=== PATIENT | female | born 2000 | race Caucasian/White ===

== ENCOUNTER 2021-07-13 21:54 | Inpatient (IN) | payer MEDICAID ==
[~2021-07-13] VITALS: Ht 165.1 cm; Wt 85.9 kg
[2021-07-14 05:41] LABS: COVID AG,FIA SOURCE NASAL SWAB
[2021-07-14] MEDS ORDERED: LORazepam 2 MG/ML VIAL IM ONE (09:15)
[2021-07-14] MEDS ORDERED: HALOPERIDOL LACTATE 5 MG/ML VIAL IM ONE (09:15)
[2021-07-14] MEDS ORDERED: DiphenhydrAMINE HCL 50 MG/ML VIAL IM ONE (09:15)
[2021-07-14 09:33] VITALS: BP 111/62
[2021-07-14] MEDS ORDERED: MAGNESIUM HYDROXIDE SUSPENSION 30 ML UDCUP PO PRN (10:00)
[2021-07-14] MEDS ORDERED: ACETAMINOPHEN 325 MG TABLET PO PRN (10:00)
[2021-07-14] MEDS ORDERED: CloNIDine HCL 0.1 MG TABLET PO PRN (10:00)
[2021-07-14] MEDS ORDERED: BACITRACIN 28 GM OINTMENT TP PRN (10:00)
[2021-07-14] MEDS ORDERED: ALBUTEROL SULFATE HFA 90 MCG/PUFF 8 GM INHALER IH PRN (10:00)
[2021-07-14] MEDS ORDERED: BENZOCAINE/MENTHOL LOZENGE PO PRN (10:00)
[2021-07-14] MEDS ORDERED: IBUPROFEN 600 MG TABLET PO PRN (10:00)
[2021-07-14] MEDS ORDERED: PETROLATUM,WHITE 28 GM JELLY TP PRN (10:00)
[2021-07-14] MEDS ORDERED: OMEPRAZOLE 20 MG CAPSULE PO PRN (10:00)
[2021-07-14] MEDS ORDERED: DOCUSATE SODIUM 100 MG CAPSULE PO PRN (10:00)
[2021-07-14] MEDS ORDERED: ONDANSETRON HCL 4 MG TABLET PO PRN (10:00)
[2021-07-14] MEDS ORDERED: LOPERAMIDE HCL 2 MG CAPSULE PO PRN (10:00)
[2021-07-14] MEDS ORDERED: MAG HYDROX/AL HYDROX/SIMETH ES 30 ML SUSPENSION UDCUP PO PRN (10:00)
[2021-07-14] MEDS ORDERED: INFLUENZA VIRUS VACCINE QVS 2021-22 (6MO+)/PF 60 MCG/0.5 ML SYRINGE IM. ONE (10:30)
[2021-07-14 16:01] VITALS: BP 118/73
[2021-07-14] MEDS: BACITRACIN 28 GM OINTMENT TP SCH (16:19)
[2021-07-15 05:29] VITALS: BP 116/70
[2021-07-15] MEDS: BACITRACIN 28 GM OINTMENT TP SCH ×2 (08:43→16:20)
[2021-07-16] MEDS: RisperiDONE 1 MG TABLET PO SCH ×2 (08:03→16:32)
[2021-07-16 08:04] VITALS: BP 119/82
[2021-07-16] MEDS: BACITRACIN 28 GM OINTMENT TP SCH ×2 (08:07→16:39)
[2021-07-16] MEDS: LORazepam 2 MG TABLET PO PRN (08:08)
[2021-07-17 00:49] VITALS: BP 138/90
[2021-07-17 08:09] VITALS: BP 114/72
[2021-07-17] MEDS: RisperiDONE 2 MG TABLET PO SCH ×2 (08:28→16:12)
[2021-07-17] MEDS: BACITRACIN 28 GM OINTMENT TP SCH ×2 (08:28→16:12)
[2021-07-17] MEDS: LORazepam 2 MG TABLET PO PRN (09:29)
[2021-07-17] MEDS: HALOPERIDOL 5 MG TABLET PO PRN (09:39)
[2021-07-18 01:17] VITALS: BP 118/76
[2021-07-18 07:32] LABS: BASOPHILS % (AUTO) 0.6 % (0.0-2.0); EOSINOPHILS % (AUTO) 1.3 % (1.0-6.0); HEMATOCRIT 36.8 % (36-46); HEMOGLOBIN 12.2 g/dL (12.0-16.0); LYMPHOCYTES # (AUTO) 2.5 K/uL (1.0-4.8); MEAN CORPUSCULAR HEMOGLOBIN 27.1 pg (26.0-34.0); MEAN CORPUSCULAR HGB CONC 33.1 G/dL (31.0-37.0); MEAN CORPUSCULAR VOLUME 82 fL (80-100); MONOCYTES # (AUTO) 0.4 K/uL (0.1-1.0); NEUTROPHILS # (AUTO) 2.9 K/uL (1.8-7.7); NEUTROPHILS % (AUTO) 49.1 % (40.0-70.0); PLATELET COUNT (AUTO) 240 K/uL (150-450); RED BLOOD CELL COUNT(AUTO) 4.49 MIL/uL (4.00-5.20); RED CELL DISTRIBUTION WIDTH 14.4 % (11.5-14.5)
[2021-07-18 08:28] VITALS: BP 118/76
[2021-07-18] MEDS: RisperiDONE 2 MG TABLET PO SCH ×2 (08:38→16:11)
[2021-07-18] MEDS: LORazepam 2 MG TABLET PO PRN (08:38)
[2021-07-18] MEDS: BACITRACIN 28 GM OINTMENT TP SCH ×2 (09:21→16:12)
[2021-07-18] MEDS: HALOPERIDOL 5 MG TABLET PO PRN (09:30)
[2021-07-18 09:43] LABS: ALANINE AMINOTRANSFERASE 19 U/L (12-78); ALBUMIN 3.1 g/dL (3.4-5.0); ALKALINE PHOSPHATASE 109 U/L (46-116); ANION GAP 8 mmol/L (8-16); ASPARTATE AMINOTRANSFERASE 8 U/L (15-37); BILIRUBIN,TOTAL 0.3 mg/dL (0.1-1.0); CALCIUM, TOTAL 8.7 mg/dL (8.8-10.5); CARBON DIOXIDE 26 mmol/L (22-29); CHLORIDE 103 mmol/L (98-107); CREATININE 0.64 mg/dL (0.60-1.30); GLOMERULAR FILTR. RATE CALC > 60 mL/min (>60); GLUCOSE,RANDOM 94 mg/dL (70-110); HCG,QUANTITATIVE < 1 mIU/mL (0-6); POTASSIUM 3.9 mmol/L (3.5-5.1); SODIUM SERUM 137 mmol/L (136-145); TOTAL PROTEIN, SERUM 7.1 g/dL (6.4-8.2); UREA NITROGEN, BLOOD 15 mg/dL (7-18)
[2021-07-18 16:11] VITALS: BP 130/77
[2021-07-19 06:25] VITALS: BP 124/82
[2021-07-19] MEDS: RisperiDONE 2 MG TABLET PO SCH ×2 (08:10→16:00)
[2021-07-19] MEDS: BACITRACIN 28 GM OINTMENT TP SCH ×2 (08:10→16:00)
[2021-07-19] MEDS: LORazepam 2 MG TABLET PO PRN (08:10)
[2021-07-19 08:21] VITALS: BP 116/62
[2021-07-19 16:12] VITALS: BP 144/69
[2021-07-20 02:04] VITALS: BP 138/70
[2021-07-20] MEDS: ZOLPIDEM TARTRATE 10 MG TABLET PO PRN (03:00)
[2021-07-20 08:20] VITALS: BP 122/66
[2021-07-20] MEDS: BACITRACIN 28 GM OINTMENT TP SCH ×2 (08:44→16:47)
[2021-07-20] MEDS: RisperiDONE 2 MG TABLET PO SCH ×2 (08:44→16:47)
[2021-07-20] MEDS: MULTIVITAMINS WITH MINERALS, THERAPEUTIC TABLET PO SCH (08:44)
[2021-07-20] MEDS: LORazepam 2 MG TABLET PO PRN (08:44)
[2021-07-20 16:18] VITALS: BP 112/61
[2021-07-21 04:28] VITALS: BP 133/76
[2021-07-21 08:13] VITALS: BP 118/84
[2021-07-21] MEDS: RisperiDONE 2 MG TABLET PO SCH ×2 (08:16→16:38)
[2021-07-21] MEDS: BACITRACIN 28 GM OINTMENT TP SCH ×2 (08:16→16:37)
[2021-07-21] MEDS: LORazepam 2 MG TABLET PO PRN ×2 (08:17→14:21)
[2021-07-21] MEDS: MULTIVITAMINS WITH MINERALS, THERAPEUTIC TABLET PO SCH (08:17)
[2021-07-21] MEDS: HALOPERIDOL 5 MG TABLET PO PRN (08:30)
[2021-07-21 16:14] VITALS: BP 104/69
[2021-07-21] MEDS: LACTULOSE 20 GM/30 ML SOLUTION UDCUP PO SCH (23:51)
[2021-07-22 05:22] VITALS: BP 115/76
[2021-07-22] MEDS: LACTULOSE 20 GM/30 ML SOLUTION UDCUP PO SCH ×3 (08:00→16:14)
[2021-07-22 08:09] VITALS: BP 109/69
[2021-07-22] MEDS: MULTIVITAMINS WITH MINERALS, THERAPEUTIC TABLET PO SCH (08:10)
[2021-07-22] MEDS: RisperiDONE 2 MG TABLET PO SCH ×2 (08:10→16:14)
[2021-07-22] MEDS: BACITRACIN 28 GM OINTMENT TP SCH ×3 (08:10→16:14)
[2021-07-22 08:56] LABS: GLUCOMETER DEV NAME(LOC) POC.BV
[2021-07-22] MEDS: HALOPERIDOL 5 MG TABLET PO PRN ×2 (09:57→16:14)
[2021-07-22] MEDS: LORazepam 2 MG TABLET PO PRN ×2 (09:57→14:00)
[2021-07-22 16:08] VITALS: BP 102/61
[2021-07-23 04:30] VITALS: BP 123/78
[2021-07-23] MEDS: LACTULOSE 20 GM/30 ML SOLUTION UDCUP PO SCH ×4 (08:00→16:00)
[2021-07-23] MEDS: MULTIVITAMINS WITH MINERALS, THERAPEUTIC TABLET PO SCH (08:27)
[2021-07-23] MEDS: BACITRACIN 28 GM OINTMENT TP SCH ×2 (08:28→16:01)
[2021-07-23] MEDS: RisperiDONE 2 MG TABLET PO SCH ×2 (08:28→16:00)
[2021-07-23 09:49] VITALS: BP 120/83
[2021-07-23] MEDS: LORazepam 2 MG TABLET PO PRN (15:39)
[2021-07-23 16:10] VITALS: BP 100/62
[2021-07-24 00:44] VITALS: BP 113/60
[2021-07-24 08:06] VITALS: BP 105/61
[2021-07-24] MEDS: RisperiDONE 2 MG TABLET PO SCH ×2 (08:19→16:41)
[2021-07-24] MEDS: BACITRACIN 28 GM OINTMENT TP SCH (08:20)
[2021-07-24] MEDS: MULTIVITAMINS WITH MINERALS, THERAPEUTIC TABLET PO SCH (08:20)
[2021-07-24 08:23] VITALS: BP 112/70
[2021-07-24] MEDS: LORazepam 2 MG TABLET PO PRN ×2 (08:23→16:42)
[2021-07-24] MEDS: HALOPERIDOL 5 MG TABLET PO PRN (12:58)
[2021-07-24 16:01] VITALS: BP 139/74
[2021-07-25 02:10] VITALS: BP 111/62
[2021-07-25 08:03] VITALS: BP 106/74
[2021-07-25] MEDS: LORazepam 2 MG TABLET PO PRN ×2 (08:07→16:00)
[2021-07-25] MEDS: RisperiDONE 2 MG TABLET PO SCH ×2 (08:07→16:00)
[2021-07-25] MEDS: MULTIVITAMINS WITH MINERALS, THERAPEUTIC TABLET PO SCH (08:07)
[2021-07-25 16:01] VITALS: BP 118/67
[2021-07-26 00:06] VITALS: BP 119/65
[2021-07-26] MEDS: LORazepam 2 MG TABLET PO PRN ×3 (00:17→16:00)
[2021-07-26] MEDS: ZOLPIDEM TARTRATE 10 MG TABLET PO PRN (00:18)
[2021-07-26 08:05] VITALS: BP 116/79
[2021-07-26] MEDS: RisperiDONE 2 MG TABLET PO SCH ×2 (08:18→16:00)
[2021-07-26] MEDS: MULTIVITAMINS WITH MINERALS, THERAPEUTIC TABLET PO SCH (08:18)
[2021-07-26 16:08] VITALS: BP 148/85
[2021-07-27] MEDS: ZOLPIDEM TARTRATE 10 MG TABLET PO PRN (00:08)
[2021-07-27 03:25] VITALS: BP 122/69
[2021-07-27 04:53] VITALS: BP 101/64
[2021-07-27] MEDS: MULTIVITAMINS WITH MINERALS, THERAPEUTIC TABLET PO SCH (08:05)
[2021-07-27] MEDS: RisperiDONE 2 MG TABLET PO SCH ×2 (08:05→16:00)
[2021-07-27 08:09] VITALS: BP 120/77
[2021-07-27] MEDS ORDERED: RISP2TAB86 PO (15:18)
[2021-07-27 16:09] VITALS: BP 132/85
[2021-07-28 00:18] VITALS: BP 126/80
[2021-07-28] MEDS: MULTIVITAMINS WITH MINERALS, THERAPEUTIC TABLET PO SCH (08:03)
[2021-07-28] MEDS: RisperiDONE 2 MG TABLET PO SCH (08:03)
[2021-07-28 08:42] VITALS: BP 98/60
== END 2021-07-28 14:01 | disposition home or self-care (01) | DRG 751 ==
LOC: EMS 21:57 → EDBD 07-14 05:28 → B3A 07-14 05:28
PROVIDERS: ADMIT Psychiatry & Neurology Psychiatry; ATTEND Psychiatry & Neurology Psychiatry
DX: F29 Unspecified psychosis not due to a substance or known physiological condition (principal); F19.10 Other psychoactive substance abuse, uncomplicated; F41.9 Anxiety disorder, unspecified; G47.00 Insomnia, unspecified; Z20.822 Contact with and (suspected) exposure to COVID-19; K59.00 Constipation, unspecified; Z72.0 Tobacco use; Z71.6 Tobacco abuse counseling
CPT/HCPCS: 80053; 82140; 84702; 85025; 99285; G0480; J1200; J1630; J2060